=== PATIENT | male | born 1995 | race Two or more races ===

== ENCOUNTER 2018-10-20 09:33 | Inpatient (IN) | payer SELFPAY ==
--- NOTE | 2018-10-20 10:04 | ER Document Report ---
ED Medical Screen (RME) - General Chief Complaint: Abdominal Pain Stated Complaint: ABDOMINAL PAIN Time Seen by Provider: 10/20/18 10:00 Mode of Arrival: Ambulatory Information source: Patient Notes: 23-year-old male with no reported past medical history presents with complaint of right lower quadrant abdominal pain that started 4 days prior to arrival. Patient has had associated nausea without vomiting and reports dark urine this morning. He does have a history of 1 previous kidney stone. I have greeted and performed a rapid initial assessment of this patient. A comprehensive ED assessment and evaluation of the patient, analysis of test results and completion of medical decision making process we will be contacted by additional ED providers. PHYSICAL EXAMINATION: Vital signs reviewed-tachycardic, afebrile GENERAL: Appears to be in pain LUNGS: No respiratory distress Musculoskeletal: Normal range of motion NEUROLOGICAL: Normal speech, normal gait. PSYCH: Normal mood, normal affect. SKIN: Warm, Dry, normal turgor, no rashes or lesions noted. TRAVEL OUTSIDE OF THE [place] IN LAST 30 DAYS: No - HPI Onset: Other Onset/Duration: Gradual, Persistent, Worse Quality of pain: Throbbing Severity: Moderate Associated Symptoms: Abdominal pain, Nausea. denies: Diarrhea Exacerbated by: Denies Relieved by: Denies Similar symptoms previously: No Recently seen / treated by doctor: No - Related Data Smoking: Non-smoker Frequency of alcohol use: None Drug Abuse: None Allergies/Adverse Reactions: No Known Allergies Allergy (Verified 10/20/18 09:35) Past Medical History - Social History Frequency of alcohol use: None Drug Abuse: None Renal/ Medical History: Denies: Hx Peritoneal Dialysis Past Surgical History: Reports: Hx Orthopedic Surgery - L leg Physical Exam - Vital signs Vitals: Temp Pulse Resp BP Pulse Ox 97.6 F 120 H 18 131/86 H 96 10/20/18 09:47 10/20/18 09:47 10/20/18 09:47 10/20/18 09:47 10/20/18 09:47 Course - Vital Signs Vital signs: Temp Pulse Resp BP Pulse Ox 97.6 F 120 H 18 131/86 H 96 10/20/18 09:47 10/20/18 09:47 10/20/18 09:47 10/20/18 09:47 10/20/18 09:47
[2018-10-20] MEDS ORDERED: ONDANSETRON HCL INJ/PF 4 MG/2 ML SDV IV ONE ×2 (10:07→14:47)
[2018-10-20] MEDS ORDERED: MORPHINE SULFATE 10 MG/ML INJ IV ONE (10:07)
--- NOTE | 2018-10-20 11:00 | ER Document Report ---
ED General - General Chief Complaint: Abdominal Pain Stated Complaint: ABDOMINAL PAIN Time Seen by Provider: 10/20/18 10:00 Mode of Arrival: Ambulatory Notes: Patient is an otherwise healthy 23-year-old male presenting with complaints of abdominal pain over the last 3 days. He states that eating or drinking and any movement make the pain worse. He denies any fever but reports associated nausea with a few episodes of vomiting. Patient reports he did some research on the Internet and believes he either has appendicitis or a kidney stone. Patient denies any past medical history. TRAVEL OUTSIDE OF THE [place] IN LAST 30 DAYS: No - Related Data Allergies/Adverse Reactions: No Known Allergies Allergy (Verified 10/20/18 11:30) Past Medical History - General Information source: Patient - Social History Smoking Status: Current Some Day Smoker Frequency of alcohol use: None Drug Abuse: None Family History: Reviewed & Not Pertinent Patient has suicidal ideation: No Patient has homicidal ideation: No - Medical History Medical History: Negative Renal/ Medical History: Denies: Hx Peritoneal Dialysis Past Surgical History: Reports: Hx Orthopedic Surgery - L leg - Immunizations Immunizations up to date: Yes Review of Systems - Review of Systems Constitutional: Chills. denies: Fever EENT: No symptoms reported Cardiovascular: No symptoms reported Respiratory: No symptoms reported Gastrointestinal: Abdominal pain, Nausea, Vomiting, Poor appetite, Poor fluid intake Genitourinary: denies: Burning, Dysuria, Hematuria Male Genitourinary: No symptoms reported Musculoskeletal: No symptoms reported Skin: No symptoms reported Hematologic/Lymphatic: No symptoms reported Neurological/Psychological: No symptoms reported Physical Exam - Vital signs Vitals: Temp Pulse Resp BP Pulse Ox 97.6 F 120 H 18 131/86 H 96 10/20/18 09:47 10/20/18 09:47 10/20/18 09:47 10/20/18 09:47 10/20/18 09:47 - Notes Notes: PHYSICAL EXAMINATION: GENERAL: Ill-appearing, well-nourished and in moderate distress. HEAD: Atraumatic, normocephalic. EYES: Pupils equal round and reactive to light, extraocular movements intact, sclera anicteric, conjunctiva are normal. ENT: Nares patent, oropharynx clear without exudates. Moist mucous membranes. NECK: Normal range of motion, supple without lymphadenopathy LUNGS: Breath sounds clear to auscultation bilaterally and equal. No wheezes rales or rhonchi. HEART: Regular rate and rhythm without murmurs ABDOMEN: Soft, nondistended abdomen. Tenderness to palpation to right upper and lower quadrants. Negative Benitez sign, no guarding, no rebound. No masses appreciated. Genitourinary: No CVA tenderness. Musculoskeletal: Normal range of motion, no pitting or edema. No cyanosis. NEUROLOGICAL: Cranial nerves grossly intact. Normal speech, normal gait. Normal sensory, motor exams PSYCH: Normal mood, normal affect. SKIN: Warm, Dry, normal turgor, no rashes or lesions noted. Course - Re-evaluation Re-evalutation: Patient has mild leukocytosis as well as elevated total bilirubin. Although patient reports his pain is in the right lower quadrant each time I evaluate him he is rubbing his right upper quadrant and states that the pain shoots straight through to his back. We will send patient for gallbladder ultrasound as his physical examination is more consistent with cholecystitis as a likely diagnosis. 10/20/18 14:46 Contacted on-call surgery, Dr. Mcgowan is patient's ultrasound shows acute cholecystitis with gallbladder wall thickening and pericholecystic fluid. He will come see the patient as soon as he is out of the current procedure that he is in. Dr. Mcgowan came to the patient's bedside and agrees to admit patient for surgical removal of his gallbladder. - Vital Signs Vital signs: Temp Pulse Resp BP Pulse Ox 98.2 F 96 16 135/83 H 95 10/20/18 21:20 10/20/18 21:20 10/20/18 21:20 10/20/18 21:20 10/20/18 21:20 - Laboratory Result Diagrams: 10/20/18 10:38 10/20/18 10:38 Laboratory results interpreted by me: 10/20/18 10/20/18 10/20/18 10:38 10:38 10:38 WBC 12.2 H RBC 5.79 H Hgb 17.9 H Hct 51.1 H Absolute Neutrophils 8.7 H Absolute Monocytes 1.5 H Calcium 10.3 H Total Bilirubin 3.7 H Direct Bilirubin 0.5 H Total Protein 9.2 H Albumin 5.1 H Urine Protein 100 H Urine Bilirubin SMALL H Urine Urobilinogen 4.0 H Discharge - Discharge Clinical Impression: Acute cholecystitis Condition: Stable Disposition: ADMITTED INPATIENT Admitting Provider: Surgicalist - Dr. Mcgowan Unit Admitted: Medical Floor
[2018-10-20 11:01] LABS: APPEARANCE,URINE SLIGHTLY-CLOUDY; BILIRUBIN,URINE SMALL (NEGATIVE); COLOR,URINE AMBER; GLUCOSE, URINE NEGATIVE (NEGATIVE); KETONES,URINE NEGATIVE (NEGATIVE); LEUKOCYTE ESTERASE,URINE NEGATIVE (NEGATIVE); NITRITE,URINE NEGATIVE (NEGATIVE); PROTEIN,URINE 100 mg/dL (NEGATIVE); URINE SPECIFIC GRAVITY 1.036
[2018-10-20 11:06] LABS: ABSOLUTE EOSINOPHILS # (AUTO) 0.1 10^3/uL (0.0-0.6); ABSOLUTE LYMPHOCYTES (AUTO) 1.9 10^3/uL (0.5-4.7); ABSOLUTE MONOCYTES (AUTO) 1.5 10^3/uL (0.1-1.4); ABSOLUTE NEUT (AUTO) 8.7 10^3/uL (1.7-8.2); BASOPHILS % (AUTO) 0.3 % (0-2); EOSINOPHILS % (AUTO) 0.5 % (0-6); HEMATOCRIT 51.1 % (37.9-51.0); HEMOGLOBIN 17.9 g/dL (13.5-17.0); LYMPHOCYTES % (AUTO) 15.4 % (13-45); MEAN CORPUSCULAR HGB CONC 35.1 g/dL (32.0-36.0); MEAN CORPUSCULAR VOLUME 88 fl (80-97); MONOCYTES % (AUTO) 12.2 % (3-13); PLATELET COUNT 354 10^3/uL (150-450); RED BLOOD COUNT 5.79 10^6/uL (4.35-5.55); SEGMENTED NEUTROPHILS % (AUTO) 71.6 % (42-78); TOTAL CELLS COUNTED % (AUTO) 100 %; WHITE BLOOD COUNT 12.2 10^3/uL (4.0-10.5)
[2018-10-20 11:22] LABS: ALANINE AMINOTRANSFERASE 42 U/L (21-72); ALBUMIN 5.1 g/dL (3.5-5.0); ALKALINE PHOSPHATASE 122 U/L (38-126); ANION GAP 12 (5-19); ASPARTATE AMINO TRANSFERASE 29 U/L (17-59); BILIRUBIN,DIRECT 0.5 mg/dL (0.0-0.4); BILIRUBIN,TOTAL 3.7 mg/dL (0.2-1.3); BLOOD UREA NITROGEN 12 mg/dL (7-20); CALCIUM 10.3 mg/dL (8.4-10.2); CARBON DIOXIDE 26 mmol/L (22-30); CHLORIDE 103 mmol/L (98-107); GLUCOSE 108 mg/dL (75-110); LIPASE 26.3 U/L (23-300); POTASSIUM 4.1 mmol/L (3.6-5.0); SODIUM 141.3 mmol/L (137-145); TOTAL PROTEIN 9.2 g/dL (6.3-8.2)
[2018-10-20] MEDS ORDERED: NORMAL SALINE 1000 ML 1,000 ML IV ONE ×2 (11:49→14:48)
[2018-10-20] MEDS ORDERED: HYDROMORPHONE HCL INJ/PF 2 MG/ML AMPULE IV ONE (12:56)
--- NOTE | 2018-10-20 14:40 | RADIOLOGY REPORT (SQ) ---
EXAM DESCRIPTION: U/S ABDOMEN LIMITED W/O DOP COMPLETED DATE/TIME: 10/20/2018 2:30 pm REASON FOR STUDY: right abd pain, elevated total bili COMPARISON: None. TECHNIQUE: Dynamic and static grayscale images acquired of the abdomen and recorded on PACS. Additio nal selected color Doppler and spectral images recorded. LIMITATIONS: None. FINDINGS: PANCREAS: No masses. Visualized pancreatic duct normal caliber. LIVER: No masses. Echotexture normal. LIVER VASCULATURE: Normal directional flow of the main portal vein and hepatic veins. GALLBLADDER: Gallstones. Gallbladder wall thickening and pericholecystic fluid. ULTRASOUND-DETECTED CASTILLO'S SIGN: Positive. INTRAHEPATIC DUCTS AND COMMON DUCT: Common bile duct 5.5 mm. No intrahepatic biliary dilatation. INFERIOR VENA CAVA: Normal flow. AORTA: No aneurysm. RIGHT KIDNEY: Normal size. Normal echogenicity. No solid or suspicious masses. No hydronephrosis. No calcifications. PERITONEAL AND RIGHT PLEURAL SPACE: No ascites or effusions. OTHER: No other significant findings. IMPRESSION: Acute cholecystitis. TECHNICAL DOCUMENTATION: JOB ID: [id number]- All Rights Reserved Reading location - IP/workstation name: [email or web address]
[2018-10-20] MEDS ORDERED: HYDROMORPHONE HCL INJ/PF 2 MG/ML AMPULE IV PRN (14:47)
[2018-10-20] MEDS ORDERED: CEFAZOLIN 2 GM/D5W RTU 2 GM/50 ML RTUPB IV ONE (15:14)
[2018-10-20] MEDS ORDERED: CIPROFLOXACIN 400 MG/D5W RTU 400 MG/200 ML RTUPB IV ONE (15:14)
[2018-10-20] MEDS ORDERED: METRONIDAZOLE 500 MG/NS RTU 500 MG/100 ML RTUPB IV ONE (15:17)
[2018-10-20] MEDS ORDERED: LIDOCAINE 2% INJ-PF (20 MG/ML) 10 ML AMPUL ONE (15:31)
[2018-10-20] MEDS ORDERED: MIDAZOLAM 2 MG/2 ML INJ ONE (15:32)
[2018-10-20] MEDS ORDERED: ACETAMINOPHEN 1,000 MG/100 ML RTUPB IV ONE (15:32)
[2018-10-20] MEDS ORDERED: PROPOFOL INJ 200 MG/20 ML VIAL IV ONE (15:32)
[2018-10-20] MEDS ORDERED: FENTANYL CITRATE INJ/PF 100 MCG/2 ML AMPUL ONE ×2 (15:32→17:32)
--- NOTE | 2018-10-20 15:39 | PDOC H&P ---
History of Present Illness History of Present Illness: NICOLA DAWSON is a 23 year old male the previous history of right upper quadrant pain that has not been evaluated presents today with recurrent right upper quadrant pain that has lasted the last 3 days. Is any history of in his stool evidence that the pain has occurred after eating fatty meals that radiates to his back. Patient underwent ultrasound of the emergency room which showed gallstones with a thickened gallbladder wall and pericholecystic fluid. History of family history of cholecystitis or cholelithiasis. Past Medical History Cardiac Medical History: Reports: None Pulmonary Medical History: Reports: None EENT Medical History: Reports: None Neurological Medical History: Reports: None Endocrine Medical History: Reports: None Renal/ Medical History: Reports: None Malignancy Medical History: Reports: None GI Medical History: Reports: None Musculoskeltal Medical History: Reports: None Skin Medical History: Reports: None Psychiatric Medical History: Reports: None Traumatic Medical History: Reports: None Hematology: Reports: None Infectious Medical History: Reports: None Past Surgical History Past Surgical History: Reports: Orthopedic Surgery - L leg Social History Smoking Status: Current Some Day Smoker Family History Parental Family History Reviewed: No Children Family History Reviewed: No Sibling(s) Family History Reviewed.: No Medication/Allergy Home Medications: No Home Medications 10/20/18 Allergies/Adverse Reactions: No Known Allergies Allergy (Verified 10/20/18 11:30) Physical Exam Vital Signs: Temp Pulse Resp BP Pulse Ox 98.1 F 109 H 22 H 135/83 H 97 10/20/18 12:00 10/20/18 13:06 10/20/18 13:06 10/20/18 13:06 10/20/18 13:06 Intake & Output 10/19/18 10/20/18 10/21/18 06:59 06:59 06:59 Intake Total 1000 Balance 1000 Weight 90.3 kg General appearance: PRESENT: no acute distress, cooperative, mild distress Head exam: PRESENT: atraumatic Eye exam: PRESENT: EOMI, PERRLA Respiratory exam: PRESENT: symmetrical Cardiovascular exam: PRESENT: RRR Pulses: PRESENT: normal radial pulses, normal femoral pulses Vascular exam: PRESENT: normal capillary refill GI/Abdominal exam: PRESENT: firm, guarding - Examination is tenderness in the right upper quadrant positive Benitez sign Rectal exam: PRESENT: deferred Extremities exam: PRESENT: full ROM Musculoskeletal exam: PRESENT: ambulatory Neurological exam: PRESENT: alert, oriented to person, oriented to place, oriented to time, oriented to situation Skin exam: PRESENT: dry Results Laboratory Results: 10/20/18 10:38 10/20/18 10:38 10/20/18 10/20/18 10/20/18 10:38 10:38 10:38 WBC 12.2 H RBC 5.79 H Hgb 17.9 H Hct 51.1 H MCV 88 MCH 31.0 MCHC 35.1 RDW 13.0 Plt Count 354 Seg Neutrophils % 71.6 Lymphocytes % 15.4 Monocytes % 12.2 Eosinophils % 0.5 Basophils % 0.3 Absolute Neutrophils 8.7 H Absolute Lymphocytes 1.9 Absolute Monocytes 1.5 H Absolute Eosinophils 0.1 Absolute Basophils 0.0 Sodium 141.3 Potassium 4.1 Chloride 103 Carbon Dioxide 26 Anion Gap 12 BUN 12 Creatinine 0.69 Est GFR ( Amer) > 60 Est GFR (Non-Af Amer) > 60 Glucose 108 Calcium 10.3 H Total Bilirubin 3.7 H AST 29 ALT 42 Alkaline Phosphatase 122 Total Protein 9.2 H Albumin 5.1 H Lipase 26.3 Urine Color YVETTE Urine Appearance SLIGHTLY-CLOUDY Urine pH 5.0 Ur Specific Campbell 1.036 Urine Protein 100 H Urine Glucose (UA) NEGATIVE Urine Ketones NEGATIVE Urine Blood NEGATIVE Urine Nitrite NEGATIVE Ur Leukocyte Esterase NEGATIVE Urine WBC (Auto) 5 Urine RBC (Auto) 0 Impressions: Abdomen Ultrasound 10/20/18 11:43 IMPRESSION: Acute cholecystitis. Assessment & Plan - Plan Summary Plan Summary: Patient acute cholecystitis with an elevated white blood count pericholecystic fluid on ultrasound graft She does have a mildly elevated bilirubin of 3.7 which could be secondary to the amatory process in the right upper quadrant versus a choledocholithiasis We discussed the risk and benefits of the procedure laparoscopic versus open cholecystectomy to the patient should he have an obstructed bile duct and the stone could not be removed laparoscopically as to options would be for a open common bile duct expiration at this point or a referral for possible ERCP at a later date Prefers to have the stone and removed should it be present during this operation which would result in an open procedure. The risks benefits the procedure including bleeding infection pulmonary embolism stroke microinfarction he also understands possibility of injury to adjacent organs including the bile ducts and vasculature of the liver he agrees to proceed
[2018-10-20] MEDS ORDERED: BUPIVACAINE HCL 0.25% /EPINEPHRINE INJ/PF 30 ML SDV ONE (15:45)
[2018-10-20] MEDS ORDERED: CEFAZOLIN SODIUM 2 GM in DEXTROSE 5%-WATER 100 ML IV ONE (16:00)
[2018-10-20] MEDS ORDERED: KETOROLAC TROMETHAMINE 60 MG/2 ML SDV ONE (16:29)
[2018-10-20] MEDS ORDERED: DEXAMETHASONE SOD PHOSPHATE INJ 4 MG/1 ML VIAL ONE (16:29)
[2018-10-20] MEDS ORDERED: ONDANSETRON HCL INJ/PF 4 MG/2 ML SDV ONE (16:29)
[2018-10-20] MEDS ORDERED: SUCCINYLCHOLINE CHLORIDE INJ 200 MG/10 ML VIAL ONE (16:29)
[2018-10-20] MEDS ORDERED: PROMETHAZINE HCL INJ 25 MG/1 ML VIAL IV PRN (17:02)
[2018-10-20] MEDS ORDERED: DIPHENHYDRAMINE HCL 50 MG/ML VIAL IV PRN (17:02)
[2018-10-20] MEDS ORDERED: MEPERIDINE HCL/PF INJ 25 MG/1 ML DISP.SYRIN IV PRN (17:02)
[2018-10-20] MEDS ORDERED: FENTANYL CITRATE INJ/PF 100 MCG/2 ML AMPUL IV PRN ×3 (17:02)
[2018-10-20] MEDS ORDERED: MORPHINE SULFATE 10 MG/ML INJ IV PRN (17:02)
--- NOTE | 2018-10-20 18:13 | Operative Report ---
Operative Report DATE OF SURGERY: 10/20/18 PREOPERATIVE DIAGNOSIS: acute cholecystitis POSTOPERATIVE DIAGNOSIS: acute cholecystitis OPERATION: laparoscopic cholecystectomy with intraoperative cholangiograms SURGEON: JOSE HURTADO TISSUE REMOVED OR ALTERED: gallbladder COMPLICATIONS: none ESTIMATED BLOOD LOSS: 25cc. INTRAOPERATIVE FINDINGS: acute cholecystitis PROCEDURE: Patient was brought to the operating room in awake alert stable condition placed in the operating table in supine position induced under general anesthesia and intubated Abdomen was prepped and draped usual sterile fashion. A insufflation needle was placed into the umbilicus the abdomen was insufflated with 6 L of CO2 gas Once we had an adequate pneumoperitoneum a infraumbilical 10 mm incision was made with a 12 blade and the 10 mm port placed into the abdominal cavity Intra-abdominal visualization revealed no evidence of a varies needle or trocar injury 5 mm ports were placed in the usual fashion under direct vision Bladder was acutely inflamed and needed to be drained with a suction needle We were able to grasp the gallbladder was placed on traction dissecting in the hepatoduodenal ligament identified the cystic duct and cystic artery structures were doubly ligated on the specimen side artery was ligated on the stay side A cystic dochotomy was then made and a cholangiogram catheter was Passed into the cystic duct Intraoperative cholangiogram was obtained which showed no evidence of stones in this in the common bile duct and good flow into the right and left hepatic ducts The cholangiogram catheter was then removed 2 endoclips were placed on the stay side of the cystic duct The gallbladder was then dissected out of the liver bed with Bovie cautery Bladder was then placed in an Endobag and removed through the 10 mm port site Hemostasis of the liver bed was obtained with Bovie cautery rt upper quadrant was then copiously irrigated with normal saline and suctioned dry Once we had good hemostasis the pneumoperitoneum was reduced The fascial defect at the umbilical port site was closed with a [id number] placed 0 Vicryl suture the skin Skin on all 4 incisions were then closed with 4-0 Rapide suture Steri-Strips were then placed on all 4 incisions were anesthetized with 0.25% bupivacaine solution completed the procedure Estimated blood loss was less than 25 cc Needle counts were correct x2 patient was awakened in the operating room extubated transferred to recovery in stable condition no complications.
[2018-10-20] MEDS: MORPHINE SULFATE 10 MG/ML INJ ONE ×2 (18:15→18:40)
[2018-10-20] MEDS ORDERED: HYDROMORPHONE HCL INJ/PF 2 MG/ML AMPULE ONE (18:53)
--- NOTE | 2018-10-20 19:55 | RADIOLOGY REPORT (SQ) ---
EXAM DESCRIPTION: NO CHG FLUORO COMPLETED DATE/TIME: 10/20/2018 6:28 pm REASON FOR STUDY: LAPAROSCOPIC CHOLANGIOGRAM W/ FLUORO IN THE OR COMPARISON: None. FLUOROSCOPY TIME: 1 minutes 2 Images saved to PACS LIMITATIONS: None. PROCEDURE: Laparoscopic cholangiogram FINDINGS: Images from fluoro show contrast in the common bile duct and right and left hepatic ducts. There is drainage into the duodenum. IMPRESSION: Laparoscopic cholangiogram. Refer to operative note for further information. COMMENT: PQRS [id number]: Fluoroscopy time of the procedure is documented in the report. TECHNICAL DOCUMENTATION: JOB ID: [id number] [employer]- All Rights Reserved Reading location - IP/workstation name: [email or web address]
[2018-10-20] MEDS ORDERED: OXYCODONE-ACETAMINOPHEN 5-325 MG TABLET PO ONE (21:00)
[2018-10-20 21:21] VITALS: BP 135/83
--- NOTE | 2018-10-21 21:26 | RADIOLOGY REPORT (SQ) ---
EXAM DESCRIPTION: FL CHOLANGIOGRAM INTRAOPERATIVE COMPLETED DATE/TME: 10/20/2018 00:00 CLINICAL HISTORY: 23 years, Male, LAPROSCOPIC CHOLANGIOGRAM W/ FLUORO IN THE OR COMPARISON: None. NUMBER OF VIEWS: TECHNIQUE: LIMITATIONS: None. FINDINGS: A cholangiogram was performed in the operating room. 2 images were obtained. There is no evidence of bile duct stone. There is possible mild narrowing of the proximal common bile duct. 6 seconds of fluoroscopy time were utilized. IMPRESSION: Possible mild narrowing of the proximal common bile duct. copyright 2010 [employer]: turn off the [employer]- All Rights Reserved
--- NOTE | 2018-10-23 08:06 | Discharge Summary ---
Discharge Summary (SDC) - Discharge Final Diagnosis: acute cholecystitis Date of Surgery: 10/20/18 Condition: Stable Forms: Discharge POC-Adult Treatment or Instructions: Discharge Instructions: May have Regular diet; No lifting > than 10lbs for 6 weeks May be off work for 1 week follow up in office in 1 week( call the office at ([phone]) May take Percocet 10/325mg by mouth every 4 hours as needed for pain colace 100mg by mouth twice a day for constipation Follow up with: [facility] [address] [place] [address] This patient has received IV Morphine, Dilaudid and other Narcotics along with anesthesia medication. He has been sent home on Percocet as needed for pain. If you have any questions please feel free to call the [facility] @ [phone]-Dr. Thiago Mcgowan Referrals: [facility] [Provider Group] - 11/01/18 9:15 am (follow up) Respiratory Treatments at Home: Deep Breathing/Coughing Discharge Activity: Activity As Tolerated, No Lifting Over 10 Pounds, No Lifting/Push/Pulling Home Care Assistance: None Needed Report the Following to Your Physician Immediately: Shortness of Breath, Nausea, Vomiting, Increase in Pain, Fever over 101 Degrees, Unusual Bleeding, Redness, Swelling, Warmth, Drainage-Yellow, Drainage-Romero, Drainage-Green, Drainage-Foul Smelling
== END 2018-10-20 22:45 | disposition home or self-care (01) | DRG 419 ==
LOC: ER 09:33 → EH 15:45 → 2N 19:57
PROVIDERS: ADMIT Surgery; ATTEND Surgery
PROC: 0FT44ZZ Resection of Gallbladder, Percutaneous Endoscopic Approach (ICD-10-PCS; principal; 2018-10-20 16:15)
DX: K81.0 Acute cholecystitis (principal); F17.210 Nicotine dependence, cigarettes, uncomplicated
CPT/HCPCS: 36415; 74300; 76705; 790; 80053; 81001; 83690; 85025; 87040; 87077; 87186; 88304; 96361; 96374; 96375; 96376; 99285; J0131; J0330; J1100; J1170; J1885; J2250; J2270; J2405; J2704; J3010; J3490; J7030; Q9967